=== PATIENT | male | born 1985 | race Caucasian/White ===

== ENCOUNTER 2018-06-06 20:18 | Emergency (ER) | payer MEDICAID ==
[2018-06-06 20:30] VITALS: BP 136/88
[2018-06-06] MEDS ORDERED: HYDROcodone/ACETAMIN 5-325 MG* 1 TAB PO ONE (20:43)
[2018-06-06] MEDS ORDERED: Clindamycin CAP* 150 MG PO ONE ×2 (20:44→20:56)
--- NOTE | 2018-06-06 20:49 | UC ---
Dental HPI - HPI Summary HPI Summary: 33-year-old male comes in with a chief complaint of dental pain. Pain is right lower eye tooth. Pain is worse with chewing or touching the area. Patient saw dentist one week ago started him on amoxicillin and naproxen. Pain had improved and the last couple of days as gotten worse again. Patient has an appointment with the same dentist in 1 week. No fevers or chills. No known trauma. - History of Current Complaint Chief Complaint: UCDentalProblem Stated Complaint: TOOTH ACHE Time Seen by Provider: 06/06/18 20:24 Pain Intensity: 9 - Allergies/Home Medications Allergies/Adverse Reactions: Allergies Allergy/AdvReac Type Severity Reaction Status Date / Time No Known Allergies Allergy Verified 06/06/18 20:25 Home Medications: Home Medications Acetaminophen [Tylenol] 1,000 mg PO Q8HR PRN 06/06/18 [History Confirmed ] Amoxicillin PO (*) [Amoxicillin 500 MG CAP*] 500 mg PO TID 06/06/18 [History Confirmed 06/06/18] Naproxen [Naproxen 500 mg tab] 500 mg PO BID 06/06/18 [History Confirmed ] PMH/Surg Hx/FS Hx/Imm Hx Previously Healthy: Yes - Surgical History Surgical History: None - Family History Known Family History: Positive: Non-Contributory - Social History Alcohol Use: Occasionally Alcohol Amount: every other day Substance Use Type: Marijuana Smoking Status (MU): Light Every Day Tobacco Smoker Type: Cigarettes Amount Used/How Often: 4-5 cig a day Review of Systems All Other Systems Reviewed And Are Negative: Yes Constitutional: Positive: Negative Skin: Positive: Negative Eyes: Positive: Negative ENT: Positive: Dental Pain Respiratory: Positive: Negative Cardiovascular: Positive: Negative Gastrointestinal: Positive: Negative Motor: Positive: Negative Neurovascular: Positive: Negative Musculoskeletal: Positive: Negative Neurological: Positive: Negative Psychological: Positive: Negative Is Patient Immunocompromised?: No Physical Exam Triage Information Reviewed: Yes Appearance: Well-Appearing, Well-Nourished, Pain Distress - mild Vital Signs: Initial Vital Signs Temp 98.5 F 06/06/18 20:26 Pulse 109 06/06/18 20:26 Resp 18 06/06/18 20:26 BP 136/88 06/06/18 20:26 Pulse Ox 99 06/06/18 20:26 Eye Exam: Normal Eyes: Positive: Conjunctiva Clear ENT: Positive: Pharynx normal. Negative: Nasal drainage Dental: Positive: Other: - Rt lower eye tooth has exposed root and is tender to palpation. Tender to palpation along the rt lower gum line. Neck: Positive: Supple Respiratory: Positive: No respiratory distress Musculoskeletal Exam: Normal Musculoskeletal: Positive: Strength Intact, ROM Intact Neurological: Positive: Alert Psychological Exam: Normal Psychological: Positive: Age Appropriate Behavior Skin Exam: Normal Dental Complaint Course/Dx - Course Course Of Treatment: We will switched over to clindamycin in case the amoxicillin is no longer working. Patient does have exposed tooth root. Also a prescription for naproxen 500 mg by mouth twice a day. And for [place]. Also discussed topical such as Orajel and oil of clove. Follow-up with dentist in 1 week as scheduled. - Differential Dx/Diagnosis Provider Diagnosis: Toothache Discharge - Sign-Out/Discharge Documenting (check all that apply): Patient Departure All imaging exams completed and their final reports reviewed: No Studies - Discharge Plan Condition: Stable Disposition: HOME Prescriptions: Clindamycin Cap(NF) [Clindamycin Cap 300 mg Cap(NF)] 300 mg PO TID #28 cap HYDROcodone/ACETAMIN 5-325 MG* [[place] 5-325 TAB*] 1 tab PO Q4H PRN #30 tab MDD 6 PRN Reason: Pain Naproxen [Naproxen 500 mg tab] 500 mg PO BID #20 tablet Patient Education Materials: Toothache (ED) Referrals: [facility] [Outside] Additional Instructions: FOLLOW UP WITH YOUR DENTIST. GET REEVALUATED SOONER IF YOUR CONDITION WORSENS OR ANY QUESTIONS OR CONCERNS. - Billing Disposition and Condition Condition: STABLE Disposition: Home
== END 2018-06-06 21:09 | disposition home or self-care (01) ==
LOC: UCEAST 20:18
DX: K08.89 Other specified disorders of teeth and supporting structures (principal); F17.210 Nicotine dependence, cigarettes, uncomplicated
CPT/HCPCS: 99203; A9270-GY; G0463

== ENCOUNTER 2018-08-01 13:21 | Emergency (ER) | payer MEDICAID, OTHER ==
[2018-08-01 14:12] VITALS: BP 111/72
--- NOTE | 2018-08-01 15:16 | UC ---
Lower Extremity/Ankle HPI - HPI Summary HPI Summary: 33 yo male presents with LEFT calf pain and swelling. He tells me that he has varicose veins on both legs, but over the last 2 weeks has noticed a large increasing bump to his left calf that is causing pain up his left thigh. Denies hx of blood disorders, recent travel, SOB, chest pain. - History of Current Complaint Chief Complaint: UCGeneralIllness Stated Complaint: VEIN IN LEG IS HARD Time Seen by Provider: 08/01/18 15:15 Hx Obtained From: Patient Onset/Duration: Gradual Onset Severity Initially: Moderate Severity Currently: Moderate Pain Intensity: 6 Pain Scale Used: 0-10 Numeric - Allergies/Home Medications Allergies/Adverse Reactions: Allergies Allergy/AdvReac Type Severity Reaction Status Date / Time No Known Allergies Allergy Verified 08/01/18 14:12 Home Medications: Home Medications NK [No Home Medications Reported] 08/01/18 [History Confirmed 08/01/18] PMH/Surg Hx/FS Hx/Imm Hx - Additional Past Medical History Additional PMH: None - Surgical History Surgical History: None - Family History Known Family History: Positive: Non-Contributory - Social History Occupation: Unemployed Lives: With Family Alcohol Use: Occasionally Alcohol Amount: every other day Substance Use Type: Marijuana Smoking Status (MU): Light Every Day Tobacco Smoker Type: Cigarettes Amount Used/How Often: 4-5 cig a day Review of Systems All Other Systems Reviewed And Are Negative: Yes Constitutional: Positive: Negative Skin: Positive: Negative Respiratory: Positive: Negative Cardiovascular: Positive: Negative Musculoskeletal: Positive: Other: - Left calf pain and swelling Neurological: Positive: Negative Psychological: Positive: Negative Physical Exam - Summary Physical Exam Summary: GENERAL: NAD. WDWN. No pain distress. SKIN: No rashes, sores, lesions, or open wounds. CHEST: No accessory muscle use. Breathing comfortably and in no distress. CV: Pulses intact PT and DP. Cap refill <2seconds MSK: LEFT CALF: Moderate firm mass/vein mildly TTP. FROM at left hip, knee, and ankle. Negative se NEURO: Alert. Sensations intact and symmetric B/L LEs PSYCH: Age appropriate behavior. Triage Information Reviewed: Yes Vital Signs: Initial Vital Signs Temp 97.8 F 08/01/18 14:09 Pulse 96 08/01/18 14:09 Resp 16 08/01/18 14:09 BP 111/72 05/23/19 14:09 Pulse Ox 100 08/01/18 14:09 Vital Signs Reviewed: Yes Lower Extremity Course/Dx - Course Course Of Treatment: US: IMPRESSION: NO EVIDENCE OF DEEP VENOUS THROMBOSIS IS IDENTIFIED. Suspect enlarging varicose veins. Advised pt try compression stockings and elevating his legs. Recommend f/u with Dr. Kohli for further eval. - Differential Dx/Diagnosis Provider Diagnosis: Varicose vein of leg Discharge - Sign-Out/Discharge Documenting (check all that apply): Patient Departure All imaging exams completed and their final reports reviewed: Yes - Discharge Plan Condition: Stable Disposition: HOME Patient Education Materials: Venous Insufficiency (DC) Referrals: No Primary Care Phys,NOPCP [Primary Care Provider] - Carrington Kohli MD [Medical Doctor] - As Soon As Possible Additional Instructions: If you develop a fever, shortness of breath, chest pain, new or worsening symptoms - please call your PCP or go to the ED immediately. 1) Your ultrasound did not show any blood clots in your leg 2) I suspect your pain is due to varicose veins. These can be treated by a specialist. Please call Dr. Kohli at the number below to schedule an appointment for further evaluation and treatment of your leg pains - Billing Disposition and Condition Condition: STABLE Disposition: Home
== END 2018-08-01 17:05 | disposition home or self-care (01) ==
LOC: UCEAST 13:21
DX: I83.92 Asymptomatic varicose veins of left lower extremity (principal); F17.210 Nicotine dependence, cigarettes, uncomplicated
CPT/HCPCS: 99211; G0463